=== PATIENT | male | born 1940 | race Caucasian/White ===

== ENCOUNTER 2022-05-11 08:48 | Day surgery (SDC) | payer OTHER, MEDICARE ==
[2022-05-08 15:33] LABS: SARS-CoV-2 Antigen Rapid Res Negative (Negative)
[2022-05-11] MEDS ORDERED: Ringers Lactate 1,000 ML IV ONE (08:59)
[2022-05-11] MEDS ORDERED: LIDOCAINE 1% MPF 5 ML VIAL ONE (11:14)
[2022-05-11] MEDS ORDERED: propofoL 200 MG/20 ML VIAL IV ONE (11:14)
--- NOTE | 2022-05-11 11:36 | ENDO RPT ---
[address], [address] COLONOSCOPY PROCEDURE REPORT EXAM DATE: 05/11/2022 PATIENT NAME: Cristobal Hensley MR #: [id number] BIRTHDATE: 1940 ATTENDING: Tommie Moon DR STATUS: outpatient TERRITORY SUPERVISOR: Renay Covington RN and Denis Gillette [facility] INDICATIONS: The patient is a 81 yr old Male here for a colonoscopy due to colon cancer screening PROCEDURE PERFORMED: Colonoscopy with biopsy - cold polypectomy MEDICATIONS: Per Anesthesia. ESTIMATED BLOOD LOSS: None CONSENT: The patient understands the risks and benefits of the procedure and understands that these risks include, but are not limited to: sedation, allergic reaction, infection, perforation and/or bleeding. Alternative means of evaluation and treatment include, among others: physical exam, x-rays, and/or surgical intervention. The patient elects to proceed with this endoscopic procedure. DESCRIPTION OF PROCEDURE: During intra-op preparation period all mechanical medical equipment was checked for proper function. Hand hygiene and appropriate measures for infection prevention was taken. Procedure, possible complications, alternatives including, but not limited to possibility of bleeding, perforation, tear, infection, sepsis, need for surgery, need for blood transfusion, were explained to the patient. After the risks, benefits and alternatives of the procedure were thoroughly explained, Informed consent was verified, confirmed and timeout was successfully executed by the treatment team. The patient was placed in the left lateral position. A digital rectal exam was performed and revealed external hemorrhoids and A digital rectal exam was performed and revealed internal hemorrhoids. After appropriate level of anesthesia, the scope was passed. The EC-[id number] ([id number]) endoscope was introduced through the anus and advanced to the cecum, which was identified by both the appendix and ileocecal valve. The quality of the prep was poor. The instrument was then slowly withdrawn as the colon was fully examined. Scope withdrawal time was 11 minutes. COLON FINDINGS: There was moderate diverticulosis noted in the sigmoid colon with associated angulation, muscular hypertrophy and colonic spasm. No bleeding was noted from the diverticulosis. A smooth sessile polyp ranging between 3-5mm in size was found in the rectosigmoid colon. A polypectomy was performed with cold forceps. The resection was complete, the polyp tissue was completely retrieved and sent to histology. Small internal and external hemorrhoids were found. Retroflexed views revealed no abnormalities. The scope was then completely withdrawn from the patient and the procedure terminated. ADVERSE EVENTS: There were no complications. IMPRESSIONS: 1. There was moderate diverticulosis noted in the sigmoid colon 2. Sessile polyp ranging between 3-5mm in size was found in the rectosigmoid colon; polypectomy was performed with cold forceps 3. Small internal and external hemorrhoids RECOMMENDATIONS: 1. avoid NSAIDS for 2 weeks 2. await biopsy results 3. await biopsy results 4. follow-up: office 2 week(s) 5. Monitor for any evidence of rectal bleeding. 6. increase dietary water 7. low fiber / diverticular diet RECALL: for Colonoscopy, pending biopsy results. Tommie Moon DR eSigned: Tommie Moon DR 05/11/2022 11:35 AM cc: CPT CODES: ICD9 CODES: PATIENT NAME: Cristobal Hensley MR#: [id number]
[2022-05-11 12:14] VITALS: BP 141/60; TEMP 97.6; O2SAT 96
== END 2022-05-11 12:17 | disposition home or self-care (01) ==
LOC: OR 08:48
PROVIDERS: ATTEND Surgery
PROC: 0DBN8ZX Excision of Sigmoid Colon, Via Natural or Artificial Opening Endoscopic, Diagnostic (ICD-10-PCS; principal; 2022-05-11 11:00)
DX: Z12.11 Encounter for screening for malignant neoplasm of colon (principal); K63.5 Polyp of colon; K57.30 Diverticulosis of large intestine without perforation or abscess without bleeding; K64.8 Other hemorrhoids; K64.4 Residual hemorrhoidal skin tags; Z20.822 Contact with and (suspected) exposure to COVID-19
CPT/HCPCS: 36415 ×2; 84132; 88305; 87811; 45380; J2704; J7120